=== PATIENT | female | born 1965 | race Two or more races ===

== ENCOUNTER → 2021-07-19 23:34 | Emergency (ER) | payer SELFPAY ==
[~2021-07-19] VITALS: Ht 162.6 cm; Wt 90.7 kg
[2021-07-19 23:34] VITALS: BP 113/75
== END | disposition left against medical advice (07) ==
LOC: ER 23:34
DX: R10.30 Lower abdominal pain, unspecified (principal); K59.00 Constipation, unspecified; Z53.21 Procedure and treatment not carried out due to patient leaving prior to being seen by health care provider

== ENCOUNTER 2021-07-23 14:52 | Emergency (ER) | payer MEDICAID, OTHER ==
[~2021-07-23] VITALS: Ht 162.6 cm; Wt 90.7 kg
[2021-07-23 16:04] LABS: Basophils # (auto) 0.1 10 ^3/uL (0-0.2); Eosinophils # (auto) 0.1 10 ^3/uL (0-0.8); Eosinophils % (auto) 0.6 % (0.0-7.0); Hematocrit 45.6 % (36.0-46.0); Hemoglobin 15.4 g/dL (12.2-16.2); Lymphocytes # (auto) 2.2 10 ^3/uL (0.4-5.4); Lymphocytes % (auto) 20.8 % (10.0-50.0); Mean Corpuscular Hemoglobin 30.9 pg (28.0-32.0); Mean Corpuscular Hgb Conc. 33.9 g/dL (32.0-36.0); Mean Corpuscular Volume 91.2 fL (80.0-100.0); Monocytes # (auto) 0.4 10 ^3/uL (0-1.3); Neutrophils # (auto) 7.9 10 ^3/uL (1.6-8.6); Neutrophils % (auto) 73.6 % (37.0-80.0); Nucleated Red Blood Cells % 0.1 %; Red Cell Distribution Width 13.4 % (11.8-14.3); White Blood Cell 10.8 10^3/uL (4.4-10.8)
[2021-07-23 16:10] LABS: Urine Bacteria FEW /hpf (None Seen); Urine Blood Negative /uL (Negative); Urine Mucus FEW (None Seen); Urine Specific Gravity 1.034 (1.001-1.035); Urine WBC 1 /hpf (0 - 5)
[2021-07-23 16:25] LABS: Albumin 3.4 g/dL (3.4-5.0); BUN/Creatinine Ratio 13.3; Potassium 4.1 mmol/L (3.5-5.1)
[2021-07-23 16:39] LABS: Bilirubin, Total 0.4 mg/dL (0.2-1.0); Total Protein 7.3 g/dL (6.4-8.2)
[2021-07-23] MEDS ORDERED: IOHEXOL 300 MG/ML 100ML BOTTLE IJ ONE (16:55)
[2021-07-23 19:03] LABS: Amphetamine Screen, Urine NEGATIVE (NEGATIVE); Barbiturate Scree,Urine NEGATIVE (NEGATIVE); Benzodiazephine Screen, Urine NEGATIVE (NEGATIVE); Cannabinoid Screen, Urine NEGATIVE (NEGATIVE); Cocaine Screen, Urine NEGATIVE (NEGATIVE); Opiate Scree,Urine NEGATIVE (NEGATIVE); Phencyclidine Screen, Urine NEGATIVE (NEGATIVE)
[2021-07-23] MEDS ORDERED: NITR-87 PO ×3 (20:35→22:08)
[2021-07-23] MEDS ORDERED: HYDR-4902 PO ×3 (20:35→23:21)
[2021-07-23] MEDS ORDERED: ONDA-144 PO ×3 (20:35→22:08)
[2021-07-23 22:30] VITALS: BP 113/72
== END 2021-07-23 22:09 | disposition home or self-care (01) ==
LOC: ER 14:54
DX: K59.00 Constipation, unspecified (principal); N39.0 Urinary tract infection, site not specified; R11.0 Nausea; R79.89 Other specified abnormal findings of blood chemistry; E11.9 Type 2 diabetes mellitus without complications; K21.9 Gastro-esophageal reflux disease without esophagitis; Z79.899 Other long term (current) drug therapy
CPT/HCPCS: 36415; 74177; 80053; 80307; 81001; 83690; 84443; 84702; 85025; 93005; 99285; Q9967

== ENCOUNTER 2021-07-27 08:14 | Emergency (ER) | payer MEDICAID ==
[~2021-07-27] VITALS: Ht 162.6 cm; Wt 90.7 kg
[~2021-07-27 08:14] MED LIST: HYDR-4902 PO; NITR-87 PO; ONDA-144 PO
[2021-07-27] MEDS ORDERED: KETOROLAC TROMETH 60MG/2ML VIAL IM ONE (09:00)
[2021-07-27] MEDS ORDERED: ONDANSETRON ODT 4 MG TAB PO ONE (09:00)
[2021-07-27] MEDS ORDERED: [UNRECOGNIZED DRUG - CODE] RE (09:58)
[2021-07-27] MEDS ORDERED: DOCU-94 PO (09:58)
[2021-07-27 10:33] VITALS: BP 102/64
[2021-07-27 10:42] LABS: Basophils # (auto) 0.1 10 ^3/uL (0-0.2); Basophils % (auto) 0.8 % (0.0-2.0); Eosinophils # (auto) 0.1 10 ^3/uL (0-0.8); Eosinophils % (auto) 0.9 % (0.0-7.0); Hematocrit 45.2 % (36.0-46.0); Hemoglobin 15.4 g/dL (12.2-16.2); Lymphocytes # (auto) 2.5 10 ^3/uL (0.4-5.4); Lymphocytes % (auto) 22.4 % (10.0-50.0); Mean Corpuscular Hemoglobin 31.1 pg (28.0-32.0); Mean Corpuscular Volume 91.4 fL (80.0-100.0); Monocytes # (auto) 0.5 10 ^3/uL (0-1.3); Monocytes % (auto) 4.5 % (0.0-12.0); Neutrophils % (auto) 71.4 % (37.0-80.0); Nucleated Red Blood Cells % 0.1 %; Red Blood Cells 4.95 10^6/uL (4.0-5.20); Red Cell Distribution Width 13.4 % (11.8-14.3); White Blood Cell 11.3 10^3/uL (4.4-10.8)
[2021-07-27 10:54] LABS: Albumin 3.6 g/dL (3.4-5.0); Potassium 3.7 mmol/L (3.5-5.1)
[2021-07-27 11:13] LABS: Bilirubin, Total 0.4 mg/dL (0.2-1.0); Total Protein 7.9 g/dL (6.4-8.2)
== END 2021-07-27 11:34 | disposition home or self-care (01) ==
LOC: ER 08:14
DX: K59.00 Constipation, unspecified (principal); E11.9 Type 2 diabetes mellitus without complications; Z79.899 Other long term (current) drug therapy
CPT/HCPCS: 36415; 74176; 80053; 82150; 83690; 84484; 85025; 93005; 96372; 99285; J1885; Q0162